=== PATIENT | female | born 1940 | race African-American/Black ===

== ENCOUNTER → 2020-12-09 | Outpatient (CLI) | payer MEDICARE, OTHER | LOC: M.MRI 13:30 | PROVIDERS: ATTEND Orthopaedic Surgery | DX: S83.204A Other tear of unspecified meniscus, current injury, left knee, initial encounter (principal); S83.241A Other tear of medial meniscus, current injury, right knee, initial encounter; M17.12 Unilateral primary osteoarthritis, left knee; M23.92 Unspecified internal derangement of left knee; X58.XXXA Exposure to other specified factors, initial encounter; Y93.89 Activity, other specified; Y92.89 Other specified places as the place of occurrence of the external cause; Y99.8 Other external cause status ==

== ENCOUNTER → 2021-01-13 | Outpatient (CLI) | payer MEDICARE, OTHER ==
[~2021-01-13] MED LIST: CYCLOBENZAPRINE5 MG PO; EVISTA60 MG PO; HYDROCODON-ACE1 EAC7 PO; LEVO-T50 MCG PO; LIPITOR10 MG PO; LODINE400 M1 PO; LOSARTAN POTASS50 MG PO; LOVASTATIN 20 M20 MG PO; MELOXICAM15 MG PO; NORVASC5 MG PO; OMEPRAZOLE40 MG PO; REQUIP 0.25 M0.25 M1 PO; TOPROL XL50 MG PO
[2021-01-13 11:20] LABS: URINE BLOOD NEGATIVE (Negative); URINE CLARITY CLEAR; URINE COLOR YELLOW; URINE GLUCOSE-RANDOM NEGATIVE (Negative); URINE KETONES NEGATIVE (Negative); URINE LEUKOCYTES-REFLEX NEGATIVE (Negative); URINE NITRITE-REFLEX NEGATIVE (Negative); URINE PROTEIN NEGATIVE (Negative); URINE UROBILINOGEN 0.2 E.U./dl (0.2-1.0)
[2021-01-13 11:21] LABS: ICTOTEST (BILI CONFIRMATORY) Negative (Negative); URINE BILIRUBIN 1+ (Negative)
[2021-01-13 12:01] LABS: ABSOLUTE LYMPHOCYTES 0.8 thou/uL (0.8-5.3); ABSOLUTE MONOCYTES 0.4 thou/uL (0.0-1.2); ABSOLUTE NEUTROPHILS 5.1 thou/uL (1.6-8.1); BASOPHILS 0.6 %; EOSINOPHILS 0.5 %; HEMATOCRIT 42.1 % (37.0-47.0); HEMOGLOBIN 14.1 gm/dL (12.0-15.0); LYMPHOCYTES 12.3 %; MCH 32.2 pg (26.0-34.0); MCHC 33.4 g/dL (28.0-37.0); MCV 96.5 fL (80.0-100.0); MPV 6.8 fl. (7.2-11.1); NUCLEATED RBCS 0 /100WBC; PLATELET COUNT* 266 thou/uL (150-400); POLYS 80.6 %; RBC 4.36 mil/uL (4.20-5.00); RDW-CV 15.1 % (10.5-14.5); WBC 6.3 thou/uL (4.0-11.0)
[2021-01-13 12:12] LABS: INR 0.9; PROTIME 9.6 Seconds (9.20-11.50)
[2021-01-13 12:17] LABS: ALBUMIN 4.5 g/dL (3.4-5.0); CALCIUM 10.2 mg/dL (8.5-10.1); CREATININE 0.6 mg/dL (0.6-1.3); POTASSIUM 3.6 mmol/L (3.5-5.1); TOTAL BILIRUBIN 0.5 mg/dL (<0.1-1.0); TOTAL PROTEIN 8.9 g/dL (6.4-8.2)
--- NOTE | 2021-01-13 15:56 | EKG ---
[place] [address] ELECTROCARDIOGRAM REPORT Name: OLIVIA FAULKNER Room: [facility]#: [id number] Admission: 01/13/21 Attend Phys: Gerry Red, Discharge: Date of : 44 Date of Service: 01/13/21 1202 Report #: [id number] THIS REPORT FOR: //name// [facility] Test Date: 2021-01-13 Test Time: 12:02:42 Pat Name: OLIVIA FAULKNER Department: Room: Gender: Real Estate Site Analyst: Alannah BONILLA RN : 1940 Requested By: Gerry Red Order Number: [id number] Palma MD: Carlos Lobo Measurements Intervals [place] Rate: 66 P: -13 ND: 162 QRS: 32 QRSD: 97 T: -88 QT: 414 QTc: 434 Interpretive Statements Sinus rhythm Left atrial enlargement Probable anteroseptal infarct, old Repol abnrm suggests ischemia, anterolateral Baseline wander in lead(s) V5,V6 No previous ECG available for comparison Electronically Signed On 01-13-2021 15:56:47 CDT by Carlos Lobo [email or web address] <ELECTRONICALLY SIGNED> By: Carlos Lobo MD, [facility] 01/13/21 1556 1202 1202 Carlos Lobo MD, [facility] /EPI
== END ==
LOC: M.LAB 08:17
PROVIDERS: ATTEND Orthopaedic Surgery
DX: Z01.818 Encounter for other preprocedural examination (principal); Z01.812 Encounter for preprocedural laboratory examination; I51.7 Cardiomegaly; M17.12 Unilateral primary osteoarthritis, left knee

== ENCOUNTER 2021-01-19 10:05 | Inpatient (IN) | payer MEDICARE, OTHER ==
[~2021-01-19] VITALS: Ht 147.3 cm; Wt 53.5 kg
[~2021-01-19 10:05] MED LIST changes: +AMBIEN5 MG PO; +ANUSOL-HC25 MG RECTAL; +BIOTIN1000 MCG PO; +CALCIUM500 MG PO; +DEBROX 6.5% LT. EAR; +HYDRALAZINE 2525 MG PO; +LIDOCAINE PAIN1 EACH TRANSDERM; +MACROBID 100 M100 MG PO; +MELATONIN3 M1 PO; +PROBIOTIC1 EAC7 PO; +PYRIDIUM200 MG PO; +VITAMIN D3 COM1 EACH PO
[2021-01-19 15:43] VITALS: BP 149/59
--- NOTE | 2021-01-19 16:11 | NUR ---
PT REMAINED ALERT AND ORIENTED. PT RESTING IN BED. FAMILY AT BEDSIDE. FALL RISK PRECAUTIONS IN PLACE. HOURLY ROUNDING COMPLETED. CALL LIGHT WIHTIN REACH.
[2021-01-20] VITALS: BP 128/61
[2021-01-20 04:08] VITALS: BP 134/65
[2021-01-20 04:35] LABS: HEMATOCRIT 33.5 % (37.0-47.0); HEMOGLOBIN 11.2 gm/dL (12.0-15.0)
--- NOTE | 2021-01-20 04:51 | NUR ---
PATIENT HAS SLEPT WELL THROUGHOUT MOST OF THE NIGHT. VSS ON RA. MEDICATIONS GIVEN ORDERED AND CHARTED. PAIN HAS BEEN WELL CONTROLLED. DRESSING TO LEFT KNEE IS C/D/I, AND POLAR PACK AND SCD'S IN PLACE. IV IN LEFT HAND 1/2 NS @ 75ML/HR. PATIENT UP WITH ASSIST X 1 WITH [place] [facility] AND MOVING WELL. PATIENT URINATING ADEQUATELY SINCE SURGERY WITH NO ISSUES. FALL PRECAUTIONS IN PLACE AND HOURLY ROUNDS MADE. WILL CONTINUE WITH PLAN OF CARE AND NURSING TO MONITOR.
[2021-01-20 07:00] VITALS: BP 165/72
--- NOTE | 2021-01-20 07:03 | NUR ---
NO OT AT THIS TIME, WILL DEFER TO PT. OT WILL EVAL IF PT REQUIRES SELFCARE RETRAINING AND PT RECOMMENDS
[2021-01-20 11:21] VITALS: BP 162/75
--- NOTE | 2021-01-20 14:55 | NUR ---
CM COMPLETED ASSESSMET WITH PT SON, MAHIN CARLSON. PT LIVES AT HOME WITH HER . PT IS INDEPENDENT WITH ADLS, SEMI ACTIVE BEFORE HER "KNEE STARTED TO BOTHER HER." PT HAS NO STAIRS TO ENTRYWAY. PT HAS CHAIR LIFT INSTALLED. PT HAS WALKER /WC FOR COMMUNITY AND USE CANE IN HOME. PT HAS 3 CHILDREN THAT ARE SUPPORTIVE AND CAN HELP WITH CARE NEEDED. PT DOES NOT HAVE HX WITH SNF OR HH. CM SENT REFERRAL TO [facility], MAHIN WANTS PT TO GO "WHERE MY DAD WENT" [place] RECALL THE NAME - HE BELIEVES ITS [facility].
[2021-01-20 15:19] VITALS: BP 140/44
--- NOTE | 2021-01-20 16:02 | NUR ---
PT REMAINED ALERT AND ORIENTED. PT RESTING IN BED AND UP TO CHAIR FOR MEALS. FALL RISK PRECAUTIONS IN PLACE. HOURLY ROUNDING COMPLETED. CALL LIGHT WITHIN REACH.
[2021-01-21] VITALS (8 sets, daily range): BP systolic 73–165; BP diastolic 30–98
--- NOTE | 2021-01-21 03:32 | NUR ---
PELLETISING EXTRUDER OPERATOR GOT PATIENT UP AT APPROXIMATELY 0245 TO USE THE BSC. PATIENT SITTING ON BSC AND WAS VERY LETHARGIC AND SHOWED CONFUSION AND WAS SLOW TO RESPOND TO QUESTIONS AND HARD TO AROUSE FOR A FEW MINUTES. BS TAKEN AND WAS 134. VS TAKEN AT 0255-BP 73/30, PULSE 70, RESP-15 AND 02 99% ON RA. NOTIFIED VIA ANNE VERMA. PATIENT PUT BACK INTO BED AND HEAD OF BED LOWERED AND AFTER JUST A FEW MINUTES PATIENT WAS MUCH MORE ALERT AND ANSWERING MORE APPROPRIATELY AND NOT LETHARGIC. VS RETAKEN AT 0305 BP 108/48, PULSE-68. VS RETAKEN AGAIN AT APPROXIMATELY 0320- BP 156/59, PULSE-74. WAS STILL AWAITING CALL BACK FROM ANOTHER MESSAGE SENT TO REGARDING NEW VITAL SIGNS AND PATIENT CURRENT STATUS. [facility] NOTIFIED REGARDING PATIENT AND MESSAGE THAT WAS SENT TO DR. BANDA. DR. BANDA CALLED BACK AT 0335 AND WAS UPDATED ON PATIENT STATUS. NO NEW ORDERS GIVEN.
[2021-01-21 04:32] LABS: HEMATOCRIT 26.2 % (37.0-47.0)
[2021-01-21 05:33] LABS: HEMOGLOBIN 8.9 gm/dL (12.0-15.0)
--- NOTE | 2021-01-21 07:04 | NUR ---
PATIENT HAS RESTED WELL THROUGHOUT MOST OF THE NIGHT. BP HAS BEEN MUCH BETTER AND VSS ON RA. MEDICATIONS GIVEN ORDERED AND CHARTED. DRESSING TO LEFT KNEE IS C/D/I, POLAR PACK, JAVON HOSE AND SCD'S IN PLACE. PATIENT UP WITH ASSIST X 1 TO BSC. IV IN LEFT HAND-SL. FALL PRECAUTIONS IN PLACE AND HOURLY ROUNDS MADE. WILL CONTINUE WITH PLAN OF CARE AND NURSING TO MONITOR.
--- NOTE | 2021-01-21 10:27 | NUR ---
POC: PT HEMOGLOBIN DROPPED, PLAN FOR DC TOMORROW IF MED STABLE. [facility] IS ACCEPTING OF PT AT DC/ [facility].
[2021-01-22 00:15] VITALS: BP 175/60
[2021-01-22 04:08] VITALS: BP 162/55
[2021-01-22 04:24] LABS: HEMATOCRIT 22.5 % (37.0-47.0); HEMOGLOBIN 7.7 gm/dL (12.0-15.0); MCH 32.5 pg (26.0-34.0); MCHC 34.1 g/dL (28.0-37.0); MCV 95.1 fL (80.0-100.0); MPV 7.3 fl. (7.2-11.1); RBC 2.36 mil/uL (4.20-5.00); RDW-CV 14.7 % (10.5-14.5); WBC 8.6 thou/uL (4.0-11.0)
[2021-01-22 04:39] LABS: CALCIUM 9.1 mg/dL (8.5-10.1); CREATININE 0.7 mg/dL (0.6-1.3); MAGNESIUM 1.9 mg/dL (1.8-2.4); POTASSIUM 3.4 mmol/L (3.5-5.1)
--- NOTE | 2021-01-22 06:20 | NUR ---
PT SLEPT WELL OFF AND ON OVERNIGHT. UP WITH ASSIST TO BSC TO VOID SEVERAL TIMES OVERNIGHT. DRSG TO L KNEE INTACT, BLE JAVON HOSE ON, POLAR PACK ON L KNEE. PT COMPLETED CPM THERAPY AT . FOOT PUMP SCDS [facility]IL[facility]ALLY. [facility]. ABLE TO USE CALL LITE AND MAKE NEEDS KNOWN. ANTICIPATING DC TO [facility] TODAY IF MEDICALLY STABLE. BED ALARM ON FOR SAFETY, CALL LITE IN EASY REACH.
[2021-01-22 08:00] VITALS: BP 159/58
--- NOTE | 2021-01-22 14:35 | NUR ---
Pt's hbg dropped, monitor. CM updated [facility], they can accept Pt on Monday if medically stable.
--- NOTE | 2021-01-22 19:47 | NUR ---
PATIENT HAD A FAIR SHIFT. UP TO COMMODE AND TO CHAIR SEVERAL TIMES. PATIENT HAS FAIR APPETITE. PAIN SEEMS TO BE CONTROLLED. PATIENT HAS POLAR NALDO ON. PATIENT VITAL SIGNS STABLE. WANTS TO HAVE BM. HAS HAD STOOL SOFTENED, MILK OF MAG, AND MAG CITRATE.
[2021-01-22 20:16] VITALS: BP 183/73
--- NOTE | 2021-01-22 21:08 | OP ---
[address] [address] OPERATIVE REPORT Name: OLIVIA FAULKNER [facility] Room: [address] [place] .R.#: [id number] Admission: 01/19/21 Attend Phys: Too Alan Discharge: Date of : 44 Report #: [id number] THIS REPORT FOR: cc: SYBIL FONG NP, RUTENDO NP Greiner, Robert F. II DO ~ DATE OF SURGERY: 01/19/2021 PREOPERATIVE DIAGNOSIS: Left knee osteoarthritis. POSTOPERATIVE DIAGNOSIS: Left knee osteoarthritis. PROCEDURE: Left total knee arthroplasty. SURGEON: Gerry Red II, DO LOCK MAINTENANCE SUPERVISOR: KEVIN Louis. ANESTHESIA: General endotracheal. ESTIMATED BLOOD LOSS: 50 mL ANTIBIOTICS: Ancef preoperatively. DRAINS: Medium Hemovac. COMPLICATIONS: None. CONDITION: The patient stable to recovery room. IMPLANTS: Listed in operative record and progress note. BRIEF HISTORY: The patient in the preoperative area. Preoperative H and P was performed. Site was marked, questions were answered. Risks and benefits were discussed with the patient in detail about surgery. The patient wished to proceed assuming all risks. DESCRIPTION OF PROCEDURE: The patient was taken to the operative suite, placed supine on the operating table, given appropriate anesthesia. A well-padded tourniquet applied to the upper thigh, which was inflated to 300 mmHg after gravity exsanguination. The operative knee was sterilely prepped and draped. Surgery began by midline incision. This was carried down to subcutaneous tissues. A medial parapatellar arthrotomy was performed and carried down to bone. Patella was then everted and excess soft tissues removed from around the femur. Femoral cutting block was then applied, checked with a drop rotational alignment, pinned in appropriate position, and [place] [address] OPERATIVE REPORT Name: OLIVIA FAULKNER [facility]ER[facility]N Room: [address] [place] [facility]#: [id number] Admission: 01/19/21 Attend Phys: Too Alan Discharge: Date of : 44 Report #: [id number] 4-in-1 cutting block was then applied, checked for rotational alignment, pinned in appropriate position, and appropriate cuts were made. The tibia was then exposed. Excess meniscus was removed. Retractor was placed on collateral ligaments. Tibial cutting block was then applied, pinned in appropriate position, checked with a drop rotational alignment and slope and appropriate cut was made. Tibial bone was removed. Tibial baseplate was then applied, checked for rotational alignment with the drop john and pinned in appropriate position. The femur was then applied and box cut was reamed. This was then trialed with appropriate spacer, which showed excellent fit and fill and excellent stability of the knee through all range of motion. The patella was reamed in appropriate fashion and sized to appropriate size. Three peg holes were drilled and it was then trialed and showed to have excellent flexion, extension, excellent tracking patella within the groove. These trials were removed. The tibia was punched in appropriate fashion. Bone ends were cleansed with Pulsavac irrigation and cement was mixed, applied to final implants. These were then malleted into position and held the knee in extension and compressed to allow cement to cure. After it cured, excess was removed using Hudson and osteotome. Wound was then copiously irrigated and the final spacer was malleted into position. The tourniquet was deflated. Hemostasis was maintained with electrocautery. Pain cocktail was injected. Medium Hemovac drain was applied. Capsule was closed with #2 FiberWire and 1 Vicryl in [id number] fashion. Skin was closed with 2-0 Vicryl in running 3-0 Monocryl. Dermabond and sterile dressing applied. Levy wrap and PolarCare applied. The patient transported to recovery in stable condition. Counts were correct throughout the procedure. <ELECTRONICALLY SIGNED> By: Gerry Red II, DO 01/22/212107 19 54Gerry Red II, DO /nt
[2021-01-23 01:09] VITALS: BP 146/56
--- NOTE | 2021-01-23 05:22 | NUR ---
PT AWAKE MUCH OF THE NIGHT UP AND DOWN TO THE BSC TRYING TO MOVE HER BOWELS. HAD VERY LARGE BM FOLLOWED BY SEVERAL SMALLER BMS. L KNEE DRSG CDI, JAVON HOSE ON BLE, POLAR PACK TO L KNEE, SCD FOOT PUMPS ON. LHAND IV SL. RECEIVING PO PAIN MED WITH GOOD RESULT. AO, FORGETFUL, FUSSY AND ANXIOUS AT TIMES. UP WITH SBA TO BSC. CM FOLLOWING FOR DC TO SNF WHEN STABLE. FALL PRECAUTIONS IN PLACE.
[2021-01-23 08:00] VITALS: BP 162/68
[2021-01-23 10:48] LABS: HEMATOCRIT 22.1 % (37.0-47.0); HEMOGLOBIN 7.5 gm/dL (12.0-15.0); MCH 32.5 pg (26.0-34.0); MCHC 33.8 g/dL (28.0-37.0); MPV 7.1 fl. (7.2-11.1); RBC 2.3 mil/uL (4.20-5.00); RDW-CV 14.7 % (10.5-14.5)
[2021-01-23] MEDS ORDERED: XARELTO10 MG PO (14:03)
[2021-01-23] MEDS ORDERED: SLOW FE142 MG PO (14:04)
[2021-01-23 15:51] VITALS: BP 136/55
[2021-01-24 00:06] VITALS: BP 158/59
[2021-01-24 05:27] VITALS: BP 152/59
--- NOTE | 2021-01-24 07:55 | NUR ---
PATIENT HAS SLEPT OFF AND ON DURING THE NIGHT. VSS ON RA. MEDICATIONS GIVEN ORDERED AND CHARTED. PATIENT UP WITH ASSIST X 1 TO THE BSC. DRESSING TO LEFT KNEE IS C/D/I AND POLAR CARE IN PLACE. FALL PRECAUTIONS IN PLACE AND HOURLY ROUNDS MADE. WILL CONTINUE WITH PLAN OF CARE AND NURSING TO MONITOR.
[2021-01-24 08:00] VITALS: BP 167/66
[2021-01-24 10:01] LABS: HEMATOCRIT 23.4 % (37.0-47.0); HEMOGLOBIN 7.9 gm/dL (12.0-15.0); MCH 32.6 pg (26.0-34.0); MCHC 33.9 g/dL (28.0-37.0); MCV 96.2 fL (80.0-100.0); MPV 6.8 fl. (7.2-11.1); RBC 2.43 mil/uL (4.20-5.00); RDW-CV 14.8 % (10.5-14.5); WBC 7.6 thou/uL (4.0-11.0)
[2021-01-24 16:48] VITALS: BP 157/67
--- NOTE | 2021-01-24 19:12 | NUR ---
PT PROGRESSING TOWARDS DC GOALS. PT WILL BE GOING TO THE [facility] FOR REHAB. PT WILL ONLY USE HER CPM ONE TIME TODAY. VSS AFEBRILE WILL CONTINUE TO MONITOR PLAN OF CARE. HGB RISING AFTER IRON INFUSION THESE WERE STARTED YESTERDAY UP TO 7.9.
[2021-01-25] VITALS: BP 158/60
[2021-01-25 08:00] VITALS: BP 162/55
[2021-01-25] MEDS ORDERED: HYDROCODON-ACE1 EAC7 PO (09:09)
[2021-01-25] MEDS ORDERED: AMBIEN5 MG PO (09:09)
[2021-01-25] MEDS ORDERED: EXTRA STRENGTH85 GM TOP (09:09)
[2021-01-25] MEDS ORDERED: TRAMADOL 50 MG50 MG PO (09:09)
[2021-01-25 10:13] VITALS: BP 162/55
--- NOTE | 2021-01-25 11:48 | NUR ---
Pt discharging to [facility] today. Facility to pick remover at 2pm. Faxed dc orders. Chart copied. Nurse report number is [phone]. Updated in room.
--- NOTE | 2021-01-25 14:18 | NUR ---
PT DC TO [facility] [place] AT 1420 BY WHEELCHAIR VAN. IV OUT. PT STABLE. PERSONAL BELONGINGS SENT WITH PT AND . REPORT CALLED AT 1345.
--- NOTE | 2021-01-26 12:07 | NUR ---
CM faxed CMP order to [facility]
== END 2021-01-25 14:24 | DRG 470 ==
LOC: M.ORTHSURG → M.TBA 10:05 → M.ORTHSURG 10:41 → M.3W 12:19 → M.TBA 12:19 → M.ORTHSURG 13:08 → M.3W 15:16
PROVIDERS: Internal Medicine; Orthopaedic Surgery; ADMIT Internal Medicine; ATTEND Internal Medicine
PROC: 0SRD0J9 Replacement of Left Knee Joint with Synthetic Substitute, Cemented, Open Approach (ICD-10-PCS; principal; 2021-01-19)
DX: M17.12 Unilateral primary osteoarthritis, left knee (principal); D62 Acute posthemorrhagic anemia; Z20.822 Contact with and (suspected) exposure to COVID-19; Z79.899 Other long term (current) drug therapy; E03.9 Hypothyroidism, unspecified; F03.90 Unspecified dementia, unspecified severity, without behavioral disturbance, psychotic disturbance, mood disturbance, and anxiety; Z88.8 Allergy status to other drugs, medicaments and biological substances